=== PATIENT | male | born 1950 | race Caucasian/White ===

== ENCOUNTER 2016-07-21 08:54 | Outpatient (CLI) | payer OTHER ==
[2016-07-21 10:18] LABS: Blood Urea Nitrogen 10 mg/dL (9-20)
[2016-07-21] MEDS ORDERED: NACL ONE (11:57)
--- NOTE | 2016-07-21 13:18 | Cat Scan Report ---
CT CHEST, ABDOMEN AND PELVIS WITH CONTRAST: 07/21/16 08:54:00 CLINICAL: Follicular lymphoma. COMPARISON: 02/26/16 TECHNIQUE: Volumetric acquisition and 1.25 millimeter scan reconstructions after the uneventful intravenous injection of 100 cc of Omnipaque 300. Consent was obtained prior to the administration of the contrast. Oral contrast was was given. FINDINGS: Chest: The lungs are clear except for a stable 3 mm right lower lobe calcified granuloma. Normal aorta, heart and pulmonary arteries. Normal esophagus and trachea. No mediastinal or hilar lymphadenopathy.No axillary or supraclavicular lymphadenopathy. A right [id number] has been inserted and the tip is in the right atrium. Abdomen: Normal liver, bile ducts and gallbladder. Normal stomach, duodenum, pancreas and spleen. Normal adrenal glands. A 1 cm left upper pole renal cyst. Kidneys are otherwise normal. Normal nondilated renal collecting systems and ureters. Normal aorta and inferior vena cava. No lymphadenopathy.No ascites.Normal small bowel. Normal ascending, transverse and descending colon. The appendix is normal. Pelvis: Normal urinary bladder and rectum.Sigmoid diverticulosis and no signs of diverticulitis. Stable mild prostate enlargement. Bone windows demonstrate no suspicious bone lesion. IMPRESSION:1. No mass or lymphadenopathy. 2. Stable 3 mm calcified granuloma right lower lobe lung. 3. Mild diverticulosis but no diverticulitis. 4. Stable enlarged prostate.
== END 2016-07-21 08:55 | disposition home or self-care (01) ==
LOC: CT 08:54
PROVIDERS: ATTEND Internal Medicine Hematology
DX: C82.90 Follicular lymphoma, unspecified, unspecified site (principal); J84.10 Pulmonary fibrosis, unspecified; N28.1 Cyst of kidney, acquired; K57.30 Diverticulosis of large intestine without perforation or abscess without bleeding; N40.0 Benign prostatic hyperplasia without lower urinary tract symptoms; Z95.818 Presence of other cardiac implants and grafts
CPT/HCPCS: 36415; 71260; 74177; 82565; 84520; Q9967

== ENCOUNTER 2016-12-30 11:08 | Outpatient (CLI) | payer OTHER ==
[2016-12-30 11:58] LABS: Blood Urea Nitrogen 10 mg/dL (9-20)
--- NOTE | 2016-12-30 14:47 | Cat Scan Report ---
CT NECK WITH CONTRAST: HISTORY: Follicular lymphoma. TECHNIQUE: Helical CT following IV contrast. Sagittal and coronal reformatted images. FINDINGS: Compared to 01/13/16. The previously described right cervical and bilateral submental lymphadenopathy have resolved since the previous exam. No pathologic adenopathy is identified in the neck on today's exam. Structures of the upper aerodigestive tract remain normal. The salivary glands are symmetric and unremarkable. Normal thyroid gland. The vascular structures are widely patent. The imaged brain is unremarkable. The visualized sinuses are clear. Mild to moderate cervical spondylosis is noted. IMPRESSION: Dramatic positive response to therapy since 01/13/[address] neck with contrast.
--- NOTE | 2016-12-30 14:50 | Cat Scan Report ---
CT CHEST WITH CONTRAST: HISTORY: Follicular lymphoma. TECHNIQUE: Helical CT following IV contrast. Sagittal and coronal reformatted images. FINDINGS: Heart size is normal. There is no evidence of adenopathy within the mediastinum. Pulmonary pippa are free of any mass and the lungs are clear of infiltrates. The pleura is unremarkable. No masses involve the chest wall. No abnormalities are noted within the upper abdomen. The adrenal glands are normal. IMPRESSION: Unremarkable CT scan of the chest. No evidence for disease metastasis or recurrence. No significant change since 07/21/16.
--- NOTE | 2016-12-30 14:53 | Cat Scan Report ---
CT SCAN OF THE ABDOMEN AND PELVIS WITH CONTRAST: HISTORY: Follicular lymphoma. TECHNIQUE: Helical CT in 1.25mm intervals following IV contrast. Sagittal and coronal reconstructions. FINDINGS: The liver is normal in size and is without focal defect. No gallstones or biliary dilatation are noted. The spleen and pancreas demonstrate a normal size and attenuation with no evidence of abnormal mass. The kidneys are normal in size and position with no evidence of hydronephrosis or mass. The adrenal glands are normal. There is no intestinal obstruction or ascites. Sigmoid diverticulosis is again noted. Normal appendix. The abdominal aorta is normal. No abnormalities are identified within the retroperitoneum or mesentery. There is no evidence of peritoneal air or fluid. There is no evidence of any abnormal masses or fluid collections within the pelvis. No adenopathy is identified. The bladder is normal. The prostate gland remains mildly enlarged. IMPRESSION: Unremarkable CT scan of the abdomen and pelvis with contrast. No evidence for disease recurrence or metastasis. No significant change since 07/21/16.
== END 2016-12-30 11:09 | disposition home or self-care (01) ==
LOC: CT 11:08
PROVIDERS: ATTEND Internal Medicine Hematology
DX: C82.90 Follicular lymphoma, unspecified, unspecified site (principal); M47.892 Other spondylosis, cervical region; Z87.891 Personal history of nicotine dependence
CPT/HCPCS: 36415; 70491; 71260; 74177; 82565; 84520; Q9967